=== PATIENT | male | born 1990 | race Hispanic/Latino ===

== ENCOUNTER 2017-05-20 21:57 | Emergency (ER) | payer SELFPAY ==
--- NOTE | 2017-05-22 15:07 | EKG ---
Test Reason : Blood Pressure : / mmHG Vent. Rate : 072 BPM Atrial Rate : 072 BPM P-R Int : 174 ms QRS Dur : 086 ms QT Int : 370 ms P-R-T Axes : 034 037 031 degrees QTc Int : 405 ms Normal sinus rhythm Normal ECG Confirmed by YANI ROBERTS MD ([id number]), clinical editor MADHU CHAMPAGNE ([id number]) on 05/22/2017 3:07:49 PM Referred By: Confirmed By:YANI ROBERTS MD
== END 2017-05-20 23:39 | disposition home or self-care (01) ==
LOC: ERS 21:57
DX: F41.9 Anxiety disorder, unspecified (principal)
CPT/HCPCS: 93005